=== PATIENT | male | born 1980 | race Caucasian/White ===

== ENCOUNTER 2017-11-13 00:42 | Emergency (ER) | payer MEDICAID ==
[2017-11-13] MEDS ORDERED: DEXAMETHASONE SOD PHOSPHATE 10MG/ML VIAL PO ONE (00:49)
--- NOTE | 2017-11-13 00:58 | Emergency Department Record ---
History of Present Illness - General Chief complaint: ENT Stated complaint: SORE THROAT/COUGH Time Seen by Provider: 11/13/17 00:49 Source: Patient, Family Mode of Arrival: Ambulatory Limitations: No limitations - History of Present Illness Initial comments: 37 yo male presents with a cough, sore throat, congestion for the last 2 days. He has had some subjective fevers. No nausea, vomiting or diarrhea. No rash. He did get a flu shot this year. He is a non smoker. The cough produces a whitish discoloration. No blood in the phlegm. His PCP is at the [facility]. MD complaint: Sore throat, Other (Cough, fever, aches) -: Days(s) (2) Location: Throat Severity: Moderate Quality: Aching Consistency: Constant Improves with: Swallowing Worsens with: Eating, Swallowing Associated Symptoms: Cough, Fever, Pain with swallowing, Rhinorrhea, Sore throat - Related Data Previous Rx's Medication Instructions Recorded Clindamycin HCl 300 mg PO TID #21 capsule 11/13/17 Allergies Allergy/AdvReac Type Severity Reaction Status Date / Time No Known Drug Allergies Allergy Unverified 07/23/17 07:36 Review of Systems Constitutional: Reports: Fever. Denies: Chills, Malaise, Weakness Eyes: Denies: Eye discharge, Eye pain, Photophobia ENT: Reports: Congestion, Throat pain. Denies: Ear pain Respiratory: Reports: Cough. Denies: Dyspnea, Hemoptysis, Stridor, Wheezes Cardiovascular: Denies: Chest pain, Syncope Endocrine: Denies: Fatigue Gastrointestinal: Denies: Abdominal pain, Diarrhea, Nausea, Vomiting Genitourinary: Denies: Dysuria, Frequency, Hematuria Musculoskeletal: Denies: Arthralgia, Back pain, Myalgia Skin: Denies: Bruising, Change in color, Rash Neurological: Reports: Headache. Denies: Numbness, Weakness Psychiatric: Denies: Anxiety Hematological/Lymphatic: Denies: Blood Clots, Easy bleeding, Easy bruising, Swollen glands Physical Exam - General General Appearance: Alert, Oriented x3, Cooperative, No acute distress Limitations: No limitations - Head Head exam: Normal inspection - Eye Eye exam: Normal appearance. negative: Conjunctival injection, Scleral icterus - ENT ENT exam: Normal exam, Mucous membranes moist, Normal orophraynx, TM's normal bilaterally. negative: Mucous membranes dry Ear exam: Normal external inspection Nasal Exam: Discharge (clear) Mouth exam: Tongue normal. negative: Drooling, Muffled voice, Tongue elevation Teeth exam: Normal inspection. negative: Dental caries Throat exam: Tonsillar erythema. negative: Tonsillomegaly, Tonsillar exudate, R peritonsillar mass, L peritonsillar mass - Neck Neck exam: Normal inspection, Full ROM, Lymphadenopathy (few small anterior cervical lymph nodes). negative: Tenderness - Respiratory Respiratory exam: Normal lung sounds bilaterally. negative: Respiratory distress, Rhonchi, Stridor, Wheezes - Cardiovascular Cardiovascular Exam: Regular rate, Normal rhythm, Normal heart sounds - GI/Abdominal GI/Abdominal exam: Soft. negative: Tenderness - Rectal Rectal exam: Deferred - exam: Deferred - Extremities Extremities exam: Normal inspection, Full ROM, Normal capillary refill. negative: Tenderness - Back Back exam: Denies: CVA tenderness (R), CVA tenderness (L) - Neurological Neurological exam: Alert, Normal gait, Oriented X3 - Psychiatric Psychiatric exam: Normal affect, Normal mood. negative: Agitated, Anxious - Skin Skin exam: Dry, Intact, Normal color, Warm Course - Reevaluation(s) Reevaluation #1: 11/13/17 00:53 Vitals reviewed No acute changes. 11/13/17 01:11 The Influenza is negative Disposition Disposition: Discharge Clinical Impression: Bronchitis Disposition: Home, Self-Care Condition: (1) Good Instructions: Acute Bronchitis (ED) Additional Instructions: Return if worse, vomiting, dehydration or new concerns Call your doctor for close follow up and a recheck of this ER visit Prescriptions: Clindamycin HCl 300 mg PO TID #21 capsule Forms: Patient Portal Access Time of Disposition: 01:13 Quality - Quality Measures Quality Measures: N/A - Blood Pressure Screening Does Patient Have Any of the Following: No Blood Pressure Classification: Hypertensive Reading Systolic Measurement: 154 Diastolic Measurement: 102 Screening for High Blood Pressure: < Pre-Hypertensive BP, F/U Documented > [ G8950] Pre-Hypertensive Follow-up Interventions: Referral to alternative/primary care provider.
[2017-11-13 01:10] LABS: INFLUENZA A NEGATIVE (NEGATIVE); INFLUENZA B NEGATIVE (NEGATIVE)
[2017-11-13] MEDS ORDERED: CLINDAMYCIN 150 MG CAP PO ONE (01:12)
== END 2017-11-13 01:19 | disposition home or self-care (01) ==
LOC: ER 00:42
DX: J20.9 Acute bronchitis, unspecified (principal)
CPT/HCPCS: 87400; J1100; 99282

== ENCOUNTER 2018-09-10 11:42 | Emergency (ER) | payer MEDICAID ==
--- NOTE | 2018-09-10 12:06 | Emergency Department Record ---
History of Present Illness - General Chief complaint: Extremity Problem Stated complaint: RT KNEE PAIN Time Seen by Provider: 09/10/18 11:57 Source: Patient Mode of Arrival: Ambulatory - History of Present Illness Initial comments: Pt woke with pain and swelling tothe right knee. Denies trauma or injury. No recetn sporting activity, no hx of prior knee injury. No hip or ankle pain. No fever or recent illness. Pain mostly to the medial knee. No lock, pop, or click. Onset/Timin -: Days(s) Location: Right, Knee Radiation: Proximal Severity scale (1-10): 10 Quality: Aching, Sharp Consistency: Constant Improves with: Rest Worsens with: Exertion, Palpation, Walking, Weight bearing Associated Symptoms: Denies other symptoms - Related Data Previous Rx's Medication Instructions Recorded Ibuprofen [Motrin 600Mg] 600 mg PO Q6H 10 Days #40 tablet 09/10/18 Allergies Allergy/AdvReac Type Severity Reaction Status Date / Time No Known Drug Allergies Allergy Verified 09/10/18 11:48 Travel Screening - Travel/Exposure Within Last 30 Days Have you traveled within the last 30 days?: No - Travel/Exposure Within Last Year Have you traveled outside the [place] in the last year?: No - Additonal Travel Details Have you been exposed to anyone with a communicable illness?: No - Travel Symptoms Symptom Screening: None Review of Systems Constitutional: Denies: Chills, Fever, Night sweats Eyes: Denies: Eye discharge, Photophobia ENT: Denies: Congestion, Dental pain Respiratory: Denies: Cough, Dyspnea Cardiovascular: Denies: Arrhythmia, Chest pain Endocrine: Denies: Fatigue Gastrointestinal: Denies: Abdominal pain, Nausea, Vomiting Musculoskeletal: Reports: As per HPI Skin: Denies: Bruising Neurological: Denies: Confusion, Headache, Tingling Psychiatric: Denies: Anxiety Hematological/Lymphatic: Denies: Anemia Past Medical History - SOCIAL HISTORY Smoking Status: Never smoker Alcohol Use: Occasional Drug Use: None - RESPIRATORY Hx Respiratory Disorders: No - CARDIOVASCULAR Hx Cardio Disorders: Yes Hx Hypertension: Yes Comment:: high cholesterol - NEURO Hx Neuro Disorders: No - GI Hx GI Disorders: No - Hx Genitourinary Disorders: No - ENDOCRINE Hx Endocrine Disorders: No - MUSCULOSKELETAL Hx Musculoskeletal Disorders: No - PSYCH Hx Psych Problems: No - HEMATOLOGY/ONCOLOGY Hx Hematology/Oncology Disorders: No Family Medical History Any Significant Family History?: No Physical Exam - General General Appearance: Alert, Oriented x3, Cooperative, No acute distress - Head Head exam: Normal inspection - Eye Eye exam: Normal appearance, PERRL - ENT ENT exam: Normal exam, Mucous membranes moist, Normal external ear exam, Normal orophraynx, TM's normal bilaterally - Neck Neck exam: Normal inspection, Full ROM. negative: Tenderness - Respiratory Respiratory exam: Normal lung sounds bilaterally. negative: Respiratory distress - Cardiovascular Cardiovascular Exam: Regular rate, Normal rhythm, Normal heart sounds - GI/Abdominal GI/Abdominal exam: Soft, Normal bowel sounds. negative: Tenderness - Extremities Extremities exam: Joint swelling (right knee with +effusion, ROM -10 full extension, flex to 90 with assist. Tender to medial joint line without laxity of MCL, Megan's neg. + pain with Appleys grinding medial > lateral. ), Normal capillary refill. negative: Calf tenderness - Back Back exam: Reports: Normal inspection - Neurological Neurological exam: Alert, Oriented X3. negative: Motor sensory deficit - Psychiatric Psychiatric exam: Normal affect, Normal mood - Skin Skin exam: Normal color. negative: Rash Course Vital Signs 09/10/18 11:44 Temperature 98.0 F Pulse Rate 106 H Respiratory 16 Rate Blood Pressure 158/98 Pulse Ox 99 - Reevaluation(s) Reevaluation #1: 09/10/18 12:53 Xray neg for fracture. Discussed need for out pt eval and prob MRI. Use immobilizer and ICE. Disposition Disposition: Discharge Clinical Impression: Knee effusion, right, Right knee sprain Disposition: Home, Self-Care Condition: (1) Good Instructions: Knee Sprain (ED), Crutch Instructions (ED), Ice Pack Application (ED), Knee Immobilizer (ED) Additional Instructions: Immobilizer and weight bear to tolerance. Do not drive with immobilizer. Prescriptions: Ibuprofen [Motrin 600Mg] 600 mg PO Q6H 10 Days #40 tablet Forms: Patient Portal Access Quality - Quality Measures Quality Measures: N/A - Blood Pressure Screening Does Patient Have Any of the Following: No Blood Pressure Classification: Hypertensive Reading Systolic Measurement: 158 Diastolic Measurement: 98 Screening for High Blood Pressure: < Pre-Hypertensive BP, F/U Documented > [ G8950] Pre-Hypertensive Follow-up Interventions: Follow-up with rescreen every year.
--- NOTE | 2018-09-12 08:07 | RADIOLOGY REPORT ---
EXAM: RIGHT KNEE, THREE VIEWS HISTORY: MEDIAL KNEE PAIN. NO KNOWN INJURY. TECHNIQUE: Three views of the right knee were obtained. FINDINGS: No joint effusion. No fracture or malalignment. No significant degenerative change. Mild prepatellar soft tissue swelling. IMPRESSION: 1. NO ACUTE OSSEOUS ABNORMALITY RIGHT KNEE. 2. MILD SOFT TISSUE SWELLING. JOB NUMBER: [id number] MTDD
== END 2018-09-10 13:07 | disposition home or self-care (01) ==
LOC: ER 11:42
DX: S83.91XA Sprain of unspecified site of right knee, initial encounter (principal); X58.XXXA Exposure to other specified factors, initial encounter; I10 Essential (primary) hypertension
CPT/HCPCS: 99283